=== PATIENT | female | born 1950 | race Caucasian/White ===

== ENCOUNTER → 2023-04-21 08:45 | Outpatient (REF) | payer MEDICARE, OTHER, SELFPAY ==
[2023-04-21 12:10] LABS: % Basophils 0.9 % (0-2); % Eosinophils 2.4 % (0-6); % Immature Granulocytes 0.2 % (0-0.5); % Lymphocytes 36.9 % (20.5-51.1); % Monocytes 8.1 % (1.7-9.3); % Neutrophils 51.5 % (42.2-75.2); Absolute Basophils 0.1 10^3/uL (0-0.2); Absolute Eosinophils 0.1 10^3/uL (0-0.7); Absolute Lymphocytes 2.1 10^3/uL (1.2-3.4); Absolute Monocytes 0.5 10^3/uL (0.1-0.6); Hematocrit 40.4 % (37.0-47.0); Hemoglobin 13.9 g/dL (12.0-16.0); Mean Corp Hgb Conc. 34.4 g/dL (33.0-37.0); Mean Corpuscular Hgb 30.2 pg (27.0-31.0); Mean Corpuscular Volume 87.6 fL (81.0-99.0); Nucleated Red Blood Cells % 0 %; Platelet Count 256 10^3/uL (130-400); Red Blood Cell Count 4.61 10^6/uL (4.20-5.40); Red Cell Dist. Width 12.7 % (11.5-14.5); White Blood Cell Count 5.8 10^3/uL (4.8-10.8)
[2023-04-21 12:24] LABS: ALT (SGPT) 29 U/L (0-35); AST (SGOT) 31 U/L (14-36); Albumin 4.5 g/dl (3.5-5.0); Alkaline Phosphatase 83 U/L (38-126); Blood Urea Nitrogen 16 mg/dl (7-17); Calcium 9.8 mg/dl (8.4-10.2); Carbon Dioxide 29 mmol/L (22-30); Chloride 99 mmol/L (98-107); Glucose 111 mg/dl (70-99); HDL Cholesterol 57 mg/dl; LDL Cholesterol, Calculated 109 mg/dl; Lipase 136 U/L (23-300); Potassium 3.9 mmol/L (3.5-5.1); Sodium 137 mmol/L (135-145); Total Bilirubin 0.9 mg/dl (0.2-1.3); Total Cholesterol 202 mg/dl (50-199); Triglyceride 182 mg/dl (10-149); Very Low Density Lipoprotein 36 mg/dl (0-30); eGFR 53.72
[2023-04-21 12:33] LABS: Microalbumin, Random Urine 1.9 mg/dl (0.6-1.7); Microalbumin/creatinine Ratio 17.4 mg/g
[2023-04-21 12:53] LABS: TSH Reflex To Free T4 1.97 uIU/ml (0.47-4.68)
[2023-04-21 14:34] LABS: Glycohemoglobin (HgbA1c) 8.2 % (4.0-5.6)
== END ==
LOC: HWLAB 08:45
PROVIDERS: ATTENDING PHYSICIAN Nurse Practitioner Family
DX: I10 Essential (primary) hypertension (principal); E11.9 Type 2 diabetes mellitus without complications; E78.2 Mixed hyperlipidemia; H81.09 Meniere's disease, unspecified ear; K59.1 Functional diarrhea; Z87.898 Personal history of other specified conditions; D64.9 Anemia, unspecified; J45.909 Unspecified asthma, uncomplicated; M19.90 Unspecified osteoarthritis, unspecified site; M85.80 Other specified disorders of bone density and structure, unspecified site; F41.9 Anxiety disorder, unspecified; M25.562 Pain in left knee
CPT/HCPCS: 36415; 80053; 80061; 82043; 82570; 83036; 83690; 84443; 85025

== ENCOUNTER → 2023-05-03 08:54 | Outpatient (REF) | payer MEDICARE, OTHER, SELFPAY | LOC: HWRAD 08:54 | PROVIDERS: ATTENDING PHYSICIAN Nurse Practitioner Family | DX: M85.80 Other specified disorders of bone density and structure, unspecified site (principal); M85.89 Other specified disorders of bone density and structure, multiple sites | CPT/HCPCS: 77080 ==

== ENCOUNTER → 2023-10-19 10:51 | Outpatient (REF) | payer MEDICARE, OTHER, SELFPAY | LOC: HWRAD 10:51 | PROVIDERS: ATTENDING PHYSICIAN Nurse Practitioner Family | DX: M54.2 Cervicalgia (principal); M25.512 Pain in left shoulder | CPT/HCPCS: 72050; 73030 ==

== ENCOUNTER → 2023-10-20 13:32 | Outpatient (REF) | payer MEDICARE, OTHER, SELFPAY ==
[2023-10-20 16:42] LABS: TSH Reflex To Free T4 1.21 uIU/ml (0.47-4.68)
== END ==
LOC: HWLAB 13:32
PROVIDERS: ATTENDING PHYSICIAN Nurse Practitioner Family
DX: K59.1 Functional diarrhea (principal); E11.9 Type 2 diabetes mellitus without complications
CPT/HCPCS: 36415; 84443

== ENCOUNTER → 2023-12-19 12:56 | Outpatient (REF) | payer MEDICARE, OTHER, SELFPAY | LOC: RAD 12:56 | PROVIDERS: ATTENDING PHYSICIAN Internal Medicine; FAMILY PHYSICIAN Nurse Practitioner Family | DX: R10.30 Lower abdominal pain, unspecified (principal) | CPT/HCPCS: 74019 ==

== ENCOUNTER → 2023-12-25 11:08 | Outpatient (REF) | payer MEDICARE, OTHER, SELFPAY | LOC: HWLAB 11:08 | PROVIDERS: ATTENDING PHYSICIAN Internal Medicine; FAMILY PHYSICIAN Nurse Practitioner Family | DX: K52.9 Noninfective gastroenteritis and colitis, unspecified (principal) | CPT/HCPCS: 82653; 83993; 87045; 87046; 87077; 87324; 87328; 87329; 87427; 87449 ==

== ENCOUNTER → 2024-01-01 12:55 | Outpatient (REF) | payer MEDICARE, OTHER, SELFPAY ==
[2024-01-03 21:03] LABS: Alternaria tenuis <0.10 kU/L (<=0.34); Aspergillus fumigatus <0.10 kU/L (<=0.34); Bermuda Grass <0.10 kU/L (<=0.34); Birch Tree <0.10 kU/L (<=0.34); Box Elder/Maple Tree <0.10 kU/L (<=0.34); Cat Epithelium/Dander <0.10 kU/L (<=0.34); Clam <0.10 kU/L (<=0.34); Codfish <0.10 kU/L (<=0.34); Common Pigweed <0.10 kU/L (<=0.34); Common/Short Ragweed <0.10 kU/L (<=0.34); Cottonwood Tree <0.10 kU/L (<=0.34); Crab <0.10 kU/L (<=0.34); Dermatophagoides farinae 0.28 kU/L (<=0.34); Dog Dander <0.10 kU/L (<=0.34); Elm Tree <0.10 kU/L (<=0.34); German Cockroach 0.31 kU/L (<=0.34); Honeybee Venom <0.10 kU/L (<=0.34); Hormodendrum <0.10 kU/L (<=0.34); IgE 119 kU/L (<=214); Lobster <0.10 kU/L (<=0.34); Mountain Cedar Tree <0.10 kU/L (<=0.34); Mouse Epithelium <0.10 kU/L (<=0.34); Mucor racemosus <0.10 kU/L (<=0.34); Mugwort Weed <0.10 kU/L (<=0.34); Oak Tree <0.10 kU/L (<=0.34); Oyster <0.10 kU/L (<=0.34); Penicillium notatum <0.10 kU/L (<=0.34); Salmon <0.10 kU/L (<=0.34); Scallop <0.10 kU/L (<=0.34); Sheep Sorrel Weed <0.10 kU/L (<=0.34); Shrimp 0.12 kU/L (<=0.34); Sycamore Tree <0.10 kU/L (<=0.34); Timothy Grass <0.10 kU/L (<=0.34); Tuna <0.10 kU/L (<=0.34); Walnut Tree <0.10 kU/L (<=0.34); White Ash Tree <0.10 kU/L (<=0.34); White Mulberry Tree <0.10 kU/L (<=0.34); White-Faced Hornet <0.10 kU/L (<=0.34); Yellow Jacket Venom 0.11 kU/L (<=0.34); Yellow-Faced Hornet <0.10 kU/L (<=0.34)
== END ==
LOC: HWLAB 12:55
PROVIDERS: ATTENDING PHYSICIAN Student in an Organized Health Care Education/Training Program; FAMILY PHYSICIAN Nurse Practitioner Family
DX: J31.0 Chronic rhinitis (principal); T78.02XA Anaphylactic reaction due to shellfish (crustaceans), initial encounter; T78.03XA Anaphylactic reaction due to other fish, initial encounter; T63.461A Toxic effect of venom of wasps, accidental (unintentional), initial encounter
CPT/HCPCS: 36415; 82785; 83520; 86003

== ENCOUNTER → 2024-01-10 06:24 | Day surgery (SDC) | payer MEDICARE, OTHER, SELFPAY ==
[2024-01-10 08:07] LABS: Glucose - Point of Care 200 mg/dl (70-99)
== END ==
LOC: GI 06:24
PROVIDERS: ATTENDING PHYSICIAN Internal Medicine
DX: K22.70 Barrett's esophagus without dysplasia (principal); K31.89 Other diseases of stomach and duodenum; K29.50 Unspecified chronic gastritis without bleeding
CPT/HCPCS: 43239; 88305; 82962; 88342

== ENCOUNTER → 2024-04-01 08:44 | Outpatient (REF) | payer MEDICARE, OTHER, SELFPAY ==
--- NOTE | 2024-02-27 15:30 | PN.DIAED02 ---
Referral
DSME Class Series Code: [id number]
Referred For: Diabetes Self-Management Training, Medical Nutrition Therapy, Self-Blood Glucose Monitoring, Long-Term Complication Instruction, Accute Complication Instruction, Continuous Glucose Monitoring, Medication management, Insulin
Instruction, Care Coordination, Disease Management
PHI Release Authorization Form Signed: Yes
Demographic
(1) DM2 (diabetes mellitus, type 2)
Status: Acute
Qualifiers:
Diabetes mellitus terminal press operator insulin use: with terminal press operator use
Code(s): E11.9 - Type 2 diabetes mellitus without complications
Patient's primary language-: Mohawk
Education: High school/GED
Occupation: Retired
- Social
Primary Support Person: Self
Primary Care Takers: Self
Living Arrangements: Self, Child (Edilia has custody of her 8 year old grandson who lives with her)
- Learning Methods
Preferred Method: Hands-on demonstration, Group discussion
Glycemic Control
- Blood Glucose Monitoring Assessment
Date: 04/21/23 (FBG 111 mg/dL)
Blood glucose monitoring at home: Yes (Kim freestyle 14 day sensor)
Monitor Brands: Other (Gave Edilia a new Contour Next glucometer)
- Ketone Monitoring Assessment
Patient monitoring ketone: No
- Hypoglycemia Assessment
Patient carries glucose source: Yes
Patient experiences hypoglycemia: Yes (recenlty had a bg of 40 mg/dL & treated appropriate)
Frequency: 1-3x per week
Treatment: juice (reinforced rule of 15)
Patient has required treatment by others: No
History of Hypoglycemia Unawareness: No
- Blood Glucose Monitoring Results
Source: Other (kim freestyle sensor reports)
- Hemoglobin A1c
Date: 12/18/23
A1C Percentage (%): 8.6
Medical History of Diabetes
Family Diabetes History: Unknown
Previous Diabetes Education: Yes
How long ago?: 6-10 years ago
Previous visit with Dietitian: No
Complications/Comorbidity/Specialist: Hypertension (Lorsatin 25 mg daily), Hyperlipidemia (Etetimbibe 10 mg daily), Kidney / bladder disease (referred to see shipwright helper), Pulmonary disease (Asthma), Other / symptoms (depression/anxiety treated
with Lexapro)
Current Home Medication
- Insulin Management
Patient adjusts own insulin dosages: No (Fiasp and Toujeo)
Patient has access to glucagon: No
Measures
- Anthropometrics
Height: 5 ft 1 in
Actual Weight: 159 lb 9.6 oz
- Blood Pressure / Pulse
Blood pressure: 123/77
Pulse: 92
- Diabetes Management
Medical Management for Diabetes: Complete physical exam (01/2024), Dental exam (01/2024), Dilated eye exam, Flu Vaccination (01/2024), Foot exam (01/2024)
Self-Care
- Tobacco Usage
Do you now, or have you ever smoked?: Never smoked
- Alcohol & Drugs Usage
Drinks Alcohol: No
- Meals & Dining
Meals & Dining: Patient skips meals: Yes, Food Intolerance / Allergy: No (fish), Cultural / Christian Dietary Needs: No
Primary Food Corner Brace Block Machine Operator: Self
Primary Professor Of Astronomy: Self
Dining Out Frequency: 1-3x per week
- Physical Activity
Physical Limitation: No (left knee injury)
Patient participates in physical Activity: No (we discussed swimming and chair exercises, low impact)
- Self Foot-Care
Foot Problems: None
Performs Self Foot-Exam: Yes
Frequency: Occationally
- Patient-Self Assessment
Diabetes Knowledge: Good
Feelings About Diabetes: Anger
General Health: Fair
Importance of Health: Extremely
Diabetes Interferes With:: Family/social activities
Barriers to Diabetes Management: Nothing
Depression Survey Score: 16 (Lexapro 20 mg daily)
- Diabetes Identification
Carries Diabetes Identification: Yes
Care Plan
- Education Needs
Patient Education Needs: Diabetes disease process, Chronic complications, Acute complications, Medication, Monitoring, Physical activity, Psychosocial Adjustment, Nutritional management, Goal setting & problem solving
Recommended Diabetes Training Program based on assessment: Outpatient Diabetes Education Program
- Plan of Care
Plan of Care:
Edilia presented for her initial assessment for the March, daytime DSME course. She had received diabetes education appx. 8 years ago and is struggling to lower her hemoglobin A1c. According to Edilia her last A1c was 8.6 % in November,
2023. Currently she wears the kim freestyle 14 day sensor. She is currently taking Fiasp pre -meals: 10 units plus a correction dose according to her blood sugar: 1 unit for every 10 mg/dL over target blood sugar 140 mg/dL . She also take Toujeo
27 units nightly. She is not currently doing the 2 unit air shot prior to injections and we reviewed proper injection technique. Edilia verbalized she is under a lot of stress as she cares for her 8 year old Grandson who has medical issues. She is
unable to exercise at this time due to a left knee problem. I reinforced the importance of exercise for blood sugar management and stress relief and offered low impact options. Edilia plans to see her junior bookkeeper in March and request the
freestyle kim 2 sensor so we can use her phone to alert her of highs/lows. She does experience both hypo/hyperglycemia and reviewed appropriate treatment. We reviewed her goals and she will reach out to the office with any concerns prior to the
DSME class.
--- NOTE | 2024-02-27 15:55 | PN.DIAED04 ---
Education Record
- Education Record
Class Attended: Other (Initial DSME assessment)
DSME Class Series Code: [id number]
Instructor: Nurse Practitioner (GADIEL Kimble)
Pre-Test Score (%): 79
Goals
- Goal 1
Being Active: Exercise 15 minutes-3 times per week (limited due to left knee injury-she will try lower impact options)
Goals To Be Evaluated: Exercise 15 mins-3x/week
- Goal 2
Healthy Eating: Make better food choices
Goals To Be Evaluated: Make better food choices
- Goal 3
Monitoring: Follow monitoring schedule, Other (scan sensor before all meals and bedtimes--monitor for blood glucose patterns and switch to elizabeth 2 to get trending alerts--)
Goals To Be Evaluated: Follow monitoring times. Other
--- NOTE | 2024-04-02 13:52 | PN.DIAED14 ---
This is to notify you that your patient with diabetes, CURTIS FLOWERS ( 1950), has enrolled in our diabetes self-management classes that are being held at [facility].
These classes will include an introduction to diabetes, diet, medication, exercise and prevention of complications. At the end of our class series, you will receive a report of your patient's participation and progress for your records.
Please contact me at the [facility], , if there is any particular information regarding your patient that might be helpful to me.
Sincerely,
Richard RAMESH-,[facility]
--- NOTE | 2024-04-02 13:52 | PN.DIAED04 ---
Addendum entered and electronically signed by Anisa Manning 04/03/24 11:55:
Outpatient Diabetes Education Program:
Class 1 (120 minutes)
Describe the diabetes disease process and treatment options
Diabetes management
Develop personal strategies to promote health and behavior change
Integrate psychosocial adjustment for daily living
Monitor blood glucose and other parameters. Interpret and use the results for self-management decision making
Prevent, detect, and treat acute complications
Original Note:
Education Record
- Education Record
Class Attended: Class 1
DSME Class Series Code: [id number]
Instructor: Nurse Practitioner (GADIEL Kimble)
Class Length (mins): 120
Post-Class 1 Test Score (%): 100
== END ==
LOC: DES 08:44
PROVIDERS: ATTENDING PHYSICIAN Physician Assistant
DX: E11.9 Type 2 diabetes mellitus without complications (principal)
CPT/HCPCS: 99078

== ENCOUNTER → 2024-04-08 13:05 | Outpatient (REF) | payer MEDICARE, OTHER, SELFPAY | LOC: DES 13:05 | PROVIDERS: ATTENDING PHYSICIAN Registered Nurse | DX: E11.9 Type 2 diabetes mellitus without complications (principal) | CPT/HCPCS: 99078 ==

== ENCOUNTER → 2024-04-15 09:08 | Outpatient (REF) | payer MEDICARE, OTHER, SELFPAY | LOC: DES 09:08 | PROVIDERS: ATTENDING PHYSICIAN Registered Nurse | DX: E11.9 Type 2 diabetes mellitus without complications (principal) | CPT/HCPCS: 99078 ==

== ENCOUNTER → 2024-04-22 10:01 | Outpatient (REF) | payer MEDICARE, OTHER, SELFPAY ==
--- NOTE | 2024-04-23 10:30 | PN.DIAED04 ---
Education Record
- Education Record
Class Attended: Class 4
DSME Class Series Code: [id number]
Instructor: Nurse Practitioner (GADIEL Kimble)
Class Curriculum:
Outpatient Diabetes Education Program:
Class 4 (120 minutes)
Develop personal strategies to promote health and behavior change
Incorporate physical activity into lifestyle
Utilize medications safety for maximum therapeutic effectiveness
Understand different medication/insulin mechanism of action
Preparing for travel
Class Length (mins): 120
Post-Class 4 Test Score (%): 87
== END ==
LOC: DES 10:01
PROVIDERS: ATTENDING PHYSICIAN Registered Nurse
DX: E11.9 Type 2 diabetes mellitus without complications (principal)
CPT/HCPCS: 99078

== ENCOUNTER → 2024-04-29 10:56 | Outpatient (REF) | payer MEDICARE, OTHER, SELFPAY ==
--- NOTE | 2024-05-01 11:59 | PN.DIAED16 ---
This is to notify you that your patient with diabetes, CURTIS FLOWERS ( 1950), has attended the entire series of Diabetes Self-Management Education Classes.
Class 1 (120 minutes): Diabetes Overview - monitoring, stress/psychosocial adjustment, support, goal setting
Class 2 (120 minutes): Meal Planning - serving sizes, menu plans
Class 3 (120 minutes): Introduction to Carbohydrate Counting, Analyzing Food Labels
Class 4 (120 minutes): Medication, Exercise and Activity
Class 5 (120 minutes): Sick Day Management, Strategies to Reduce Complications, Problem Solving, Resources
The following behavioral goals were identified:
Exercise 15 mins-3x/week
Make better food choices
Follow monitoring times
Other
A follow-up call will be made within three to six months to evaluate attainment of these goals and to check post-program Hemoglobin A1c and overall progress. All class participants are encouraged to contact me if I can be any further assistance in
learning how to manage their diabetes.
Sincerely,
Richard RAMESH-, [facility]
== END ==
LOC: DES 10:56
PROVIDERS: ATTENDING PHYSICIAN Registered Nurse
DX: E11.9 Type 2 diabetes mellitus without complications (principal)
CPT/HCPCS: 99078

== ENCOUNTER → 2024-06-03 08:33 | Outpatient (REF) | payer MEDICARE, OTHER, SELFPAY ==
[2024-06-03 11:35] LABS: Blood Urea Nitrogen 18 mg/dl (7-17); Calcium 9.6 mg/dl (8.4-10.2); Carbon Dioxide 30 mmol/L (22-30); Chloride 92 mmol/L (98-107); Glucose 200 mg/dl (70-99); Potassium 3.7 mmol/L (3.5-5.1); Sodium 132 mmol/L (135-145); eGFR 59.49
== END ==
LOC: HWRAD 08:33
PROVIDERS: ATTENDING PHYSICIAN Internal Medicine Nephrology; FAMILY PHYSICIAN Nurse Practitioner Family
DX: N18.31 Chronic kidney disease, stage 3a (principal); Z12.31 Encounter for screening mammogram for malignant neoplasm of breast
CPT/HCPCS: 36415; 76770; 77063; 77067; 80048

== ENCOUNTER 2024-08-01 06:14 | Day surgery (SDC) | payer MEDICARE, OTHER, SELFPAY ==
[2024-08-01 07:20] LABS: Glucose - Point of Care 208 mg/dl (70-99)
== END 2024-08-01 09:08 | disposition home or self-care (01) ==
LOC: GI 06:14
PROVIDERS: ATTENDING PHYSICIAN Internal Medicine
DX: Z12.11 Encounter for screening for malignant neoplasm of colon (principal); K64.4 Residual hemorrhoidal skin tags; K57.30 Diverticulosis of large intestine without perforation or abscess without bleeding; K64.8 Other hemorrhoids; K58.9 Irritable bowel syndrome, unspecified; D12.0 Benign neoplasm of cecum; D12.3 Benign neoplasm of transverse colon; D12.5 Benign neoplasm of sigmoid colon; D12.7 Benign neoplasm of rectosigmoid junction; Z86.0100 Personal history of colon polyps, unspecified
CPT/HCPCS: 45385; 45380; 88305; 82962

== ENCOUNTER → 2024-10-25 10:48 | Outpatient (REF) | payer MEDICARE, OTHER, SELFPAY ==
[2024-10-25 16:13] LABS: Microalb - Urine Creatinine 69.200 mg/dl
[2024-10-25 16:16] LABS: Microalbumin, Random Urine 1.9 mg/dl (0.6-1.7)
[2024-10-25 16:18] LABS: ALT (SGPT) 12 U/L (0-35); AST (SGOT) 18 U/L (14-36); Albumin 4.1 g/dl (3.5-5.0); Alkaline Phosphatase 97 U/L (38-126); Blood Urea Nitrogen 17 mg/dl (7-17); Calcium 9.6 mg/dl (8.4-10.2); Carbon Dioxide 30 mmol/L (22-30); Chloride 104 mmol/L (98-107); Glucose 202 mg/dl (70-99); HDL Cholesterol 70 mg/dl; Potassium 4.2 mmol/L (3.5-5.1); Sodium 140 mmol/L (135-145); Total Protein 7.2 g/dl (6.3-8.2); Very Low Density Lipoprotein 21 mg/dl (0-30); eGFR > 60.00
[2024-10-25 16:26] LABS: LDL Cholesterol, Calculated 101 mg/dl
[2024-10-26 09:00] LABS: Glycohemoglobin (HgbA1c) 7.8 % (4.0-5.6)
== END ==
LOC: HWLAB 10:48
PROVIDERS: ATTENDING PHYSICIAN Nurse Practitioner Family; FAMILY PHYSICIAN Nurse Practitioner Family
DX: E11.65 Type 2 diabetes mellitus with hyperglycemia (principal); I10 Essential (primary) hypertension
CPT/HCPCS: 36415; 80053; 80061; 82043; 82570; 83036

== ENCOUNTER → 2025-02-05 10:39 | Outpatient (REF) | payer MEDICARE, OTHER, SELFPAY ==
[2025-02-05 15:24] LABS: Hematocrit 38.7 % (37.0-47.0); Hemoglobin 12.7 g/dL (12.0-16.0); Mean Corp Hgb Conc. 32.8 g/dL (33.0-37.0); Mean Corpuscular Volume 88.0 fL (81.0-99.0); Nucleated Red Blood Cells % 0 %; Platelet Count 232 10^3/uL (130-400); Red Cell Dist. Width 13.4 % (11.5-14.5)
[2025-02-05 15:49] LABS: ALT (SGPT) 18 U/L (0-35); AST (SGOT) 20 U/L (14-36); Albumin 4.1 g/dl (3.5-5.0); Alkaline Phosphatase 120 U/L (38-126); Blood Urea Nitrogen 16 mg/dl (7-17); Calcium 9.3 mg/dl (8.4-10.2); Carbon Dioxide 30 mmol/L (22-30); Chloride 100 mmol/L (98-107); Glucose 329 mg/dl (70-99); HDL Cholesterol 70 mg/dl; LDL Cholesterol, Calculated 104 mg/dl; Potassium 5.1 mmol/L (3.5-5.1); Sodium 133 mmol/L (135-145); Total Protein 7.3 g/dl (6.3-8.2); Uric Acid 4.3 mg/dl (2.5-6.2); Very Low Density Lipoprotein 34 mg/dl (0-30); eGFR > 60.00
[2025-02-05 15:57] LABS: Microalbumin, Random Urine 2.5 mg/dl (0.6-1.7)
[2025-02-05 16:00] LABS: Microalb - Urine Creatinine 60.500 mg/dl
[2025-02-06 09:32] LABS: Glycohemoglobin (HgbA1c) 9.3 % (4.0-5.9)
== END ==
LOC: HWLAB 10:39
PROVIDERS: ATTENDING PHYSICIAN Nurse Practitioner Family
DX: I10 Essential (primary) hypertension (principal); E11.9 Type 2 diabetes mellitus without complications; E78.2 Mixed hyperlipidemia; H81.09 Meniere's disease, unspecified ear; K59.1 Functional diarrhea; Z87.898 Personal history of other specified conditions; J45.909 Unspecified asthma, uncomplicated; M19.90 Unspecified osteoarthritis, unspecified site; Z12.31 Encounter for screening mammogram for malignant neoplasm of breast; M85.80 Other specified disorders of bone density and structure, unspecified site; Z12.11 Encounter for screening for malignant neoplasm of colon; F41.9 Anxiety disorder, unspecified; M25.562 Pain in left knee; N18.32 Chronic kidney disease, stage 3b; Z13.31 Encounter for screening for depression; M25.571 Pain in right ankle and joints of right foot
CPT/HCPCS: 36415; 80053; 80061; 82043; 82570; 83036; 84443; 84550; 85025

== ENCOUNTER 2025-02-26 06:40 | Day surgery (SDC) | payer MEDICARE, OTHER, SELFPAY ==
[2025-02-26 08:04] LABS: Glucose - Point of Care 384 mg/dl (70-99)
== END 2025-02-26 07:00 | disposition home or self-care (01) ==
LOC: GI 06:40
PROVIDERS: ATTENDING PHYSICIAN Internal Medicine
DX: K22.70 Barrett's esophagus without dysplasia (principal); Z53.8 Procedure and treatment not carried out for other reasons
CPT/HCPCS: 43235; 82962; G0378